=== PATIENT | female | born 1960 | race Caucasian/White ===

== ENCOUNTER 2021-01-10 12:31 | Emergency (ER) | payer OTHER, SELFPAY ==
--- NOTE | ~2021-01-10 | XR_ITS ---
XR knee LT 3V DATE: 01/10/2021 13:43 INDICATION: Fall. Anterior pain below the patella TECHNIQUE: 3 views including crosstable lateral COMPARISON: None FINDINGS: There is periarticular spurring of the patella. No fracture or dislocation or joint effusion. No radiopaque intra-articular loose body or chondrocalc inosis. No periosteal reaction or bone destruction. Joint spaces are relatively preserved. IMPRESSION: Mild periarticular spurring of the patella consistent with osteoarthritis Reviewed, dictated and finalized at location A. IMPRESSION: Mild periarticular spurring of the patella consistent with osteoart hritis
[2021-01-10 12:46] VITALS: BP 175/71; PULSE 70; RESP 16; TEMP 36.5; O2SAT 99
--- NOTE | 2021-01-10 13:11 | ED.LOWEXIN ---
HPI - Extremity Injury (Lower) General Chief Complaint: Extremity Injury, Lower Stated Complaint: left knee injury/fall Time Seen by Provider: 01/10/21 13:11 Source: patient and family Mode of arrival: wheelchair Limitations: no limitations History of Present Illness HPI Narrative: Patient is a 6-year-old female with a history of asthma and hypertension who presents for evaluation of injury to her left knee. Patient reportedly tripped over a mat at her place of work, causing her to fall onto her left knee. This was a ground-level fall. Patient states immediate pain at the left knee site with swelling. No bruising or laceration. Patient is unable to straighten the knee secondary to pain. She denies any twisting motion with the injury. She denies hip pain. No focal numbness or weakness. No head injury or loss of consciousness with the fall. She denies any hip pain or ankle pain. Pain is moderate in nature, exacerbated with movement. Related Data Home Medications Medication Instructions Recorded Confirmed dicyclomine 10 mg PO TID 01/10/21 labetalol 100 mg PO DAILY 01/10/21 losartan 100 mg PO DAILY 01/10/21 omeprazole 40 mg PO DAILY 01/10/21 Allergies Allergy/AdvReac Type Severity Reaction Status Date / Time No Known Allergies Allergy Verified 01/10/21 13:10 Review of Systems Review of Systems: CONSTITUTIONAL: Denies fever CARDIOVASCULAR: Denies chest pain RESPIRATORY: Denies cough or dyspnea. GASTROINTESTINAL: Denies abdominal pain SKIN: Denies rash MUSCULOSKELETAL: Denies back pain, reports left knee pain NEUROLOGIC: Denies headache [facility] Past Medical History Medical History (Updated 01/10/21 @ 14:15 by Eusebia Davis MD) [place] Social History Social History (Updated 01/10/21 @ 14:08 by Eusebia Davis MD) Smoking status: Current every day smoker Substance use: current Substance use type: marijuana Living arrangements: with family Gender identity (if verbalized by the patient): Female Exam Narrative: GENERAL: Awake, alert, conversant HEAD: Normocephalic, atraumatic. EYES: PERRLA and EOMI. ENT: Nares clear, no rhinorrhea or epistaxis. Mucous membranes moist. NECK: Supple. CHEST: No respiratory distress, breathing even and non labored HEART: Regular rate, sinus rhythm ABDOMEN:Non distended, non tender EXTREMITIES: Decreased range of motion at the left knee. Mild edema overlying the patella. Tenderness to palpation of the patella. Patella is midline. No significant deformity. Decreased active flexion secondary to pain. Extension is intact. Posterior tibialis pulse 2+. Intact distal sensation. SKIN: Warm, dry, no rash. NEURO:No focal deficits. Alert and oriented x3 Course Vital Signs Vital signs: Vital Signs Temperature 36.5 C 01/10/21 12:46 Pulse Rate 70 01/10/21 12:46 Respiratory Rate 16 01/10/21 12:46 Blood Pressure 175/71 H 01/10/21 12:46 Pulse Oximetry 99 01/10/21 12:46 Temperature 36.5 C 01/10/21 12:46 Pulse Rate 70 01/10/21 12:46 Respiratory Rate 16 01/10/21 12:46 Blood Pressure 175/71 H 01/10/21 12:46 Pulse Oximetry 99 01/10/21 12:46 MDM - Extremity Injury (Lower) MDM Narrative Medical decision making narrative: Patient presented for evaluation of injury to the left knee. Patient with a ground-level fall with direct impact to the left knee, tenderness overlying the patella however patella is midline there is no evidence of gross deformity or dislocation. Patient is neurovascularly intact. Patient mildly hypertensive at the time of assessment likely secondary to pain and she does have a history of hypertension. Patient was given oral pain medication in the ER. X-ray shows osteoarthritis without patellar fracture or dislocation. Patient will be discharged home given orthopedic follow-up as well as primary care physician follow-up. Differential Diagnosis Differential diagnosis: Likely other (Knee sprain, patellar fractu
[2021-01-10 14:37] VITALS: BP 139/88; PULSE 88; RESP 16; O2SAT 100
--- NOTE | 2021-01-10 14:37 | PC.NURSE ---
pt left without receiving medication
== END 2021-01-10 14:38 | disposition home or self-care (01) ==
PROVIDERS: Emergency Provider Emergency Medicine
DX: S83.8X2A Sprain of other specified parts of left knee, initial encounter (principal); Y99.0 Civilian activity done for income or pay; F17.200 Nicotine dependence, unspecified, uncomplicated; W01.0XXA Fall on same level from slipping, tripping and stumbling without subsequent striking against object, initial encounter
CPT/HCPCS: 73562; 99283